=== PATIENT | male | born 1960 | race African-American/Black ===

== ENCOUNTER → 2016-05-04 | Outpatient (CLI) | payer OTHER ==
[~2016-05-04] MED LIST: ADULT LOW DOSE81 MG PO; ADULT TUSS100 MG/5 M PO; ALLERGY RELIEF10 M3 PO; ARANESP 6060 MCG/0.3; ASPIRIN81 M2 PO; ATROVENT HFA14 GM INH; AVELOX 400 MG400 MG PO; AYR50 ML NASAL; CEPHALEXIN 500500 M1 PO; COMPAZINE5 MG PO; COUMADIN 5 MG TA5 M1 PO; DUONEB 2.5-0.5 M3 ML INH; ELIQUIS2.5 MG PO; FLONASE 0.05%50 MCG INH; FLONASE IH; FLOVENT HFA 1110 MCG INH; HYDROCODONE-ACE15 ML PO; JANUVIA 50 MG T50 MG PO; LASIX; LEVAQUIN 500 M500 M2 PO; LORTAB 10 MG-3473 ML PO; METOPROLOL SUCC50 MG PO; MILK OF MA2400 MG/10 PO; MUCINEX DM ER1 EAC1 OR; MUCINEX DM TABL1 TA1 PO; MULTAQ 400 MG400 MG PO; MULTAQ400 MG PO; MULTIVITAMINS PO; NEPHROCAPS SOFT1 CAP PO; NEXIUM 40 MG CA40 M1 PO; NEXIUM OR; NEXIUM40 MG PO; NORCO 5-325 TA1 EACH PO; OCEAN45 ML NS; OMEPRAZOLE20 MG OR; PHENERGAN 25 MG25 M1 PO; PRILOSEC 20 MG20 MG PO; PROTONIX 440 MG/VIA2 IV PUSH; RENAL SOFTGEL1 MG OR; RENAL SOFTGEL1 MG PO; RENO CAPS SOFTGE1 MG PO; RENVELA800 MG OR; RENVELA800 MG PO; ROBITUSSIN DM118 ML PO; ROBITUSSIN100 MG/53 PO; SENSIPAR 30 MG30 M1 PO; SENSIPAR60 MG PO; SENSIPAR90 MG PO; SIMVASTATIN10 MG OR; SYMBICORT160 MCG/4. IH; TRIPHROCAPS SOFT1 MG PO; ZETONNA6.1 GM NASAL; ZOFRAN 4 MG ORAL4 M1 DIS; ZOFRAN ODT4 MG SUBLING; ZPAK PO
--- NOTE | ~2016-05-04 | SLE ---
[facility] [place] [address] POLYSOMNOGRAPHY STUDY Name: TALON LIZAMA [id number] Admission: 05/04/16 Attend Phys: Jeremy Estevez MD Discharge: Date of : 58 Report #: [id number] THIS REPORT FOR: //name// CC: Jeremy Mota MD HISTORY: Prior study in 04/2010 showed an apnea-hypopnea index of 18 events per sleep hour, low sat of 84%. CPAP at 7 was recommended. COMMENTS: Study done on 1 liter. BASELINE PORTION: Total sleep time 195.5 minutes, REM sleep 53. Hypopnea 122. Apnea-hypopnea index of 37.4 events per sleep hour, low sat of 77%. Respiratory effort related arousal 0.3 events per sleep hour. Titrated at 5, 6, 7, 8 and 9 cm water pressure with 1 liter oxygen. At 9 cm water pressure, the patient was seen for 153 minutes of which 28 minutes was in REM sleep. There were 16 hypopneas, apnea-hypopnea index was 6.3 events per sleep hour, low sat of 75%. The patient related his sleep was same on this night. IMPRESSION: 1. Obstructive sleep apnea/hypopnea, G47.33. 2. Periodic limb movement with arousal index of 3.1 events per sleep hour. 3. A definite CPAP setting was not established. SUGGESTIONS: 1. In addition to specific therapy, the patient should be cautioned regarding driving or operating dangerous machinery unless fully alert. The patient should be cautioned regarding the use of respiratory depressants. 2. The usual sleep apnea suggestions are recommended. 3. Oral appliance or appropriate surgery may be considered with appropriate followup. 4. An auto titrating CPAP between 5 and 11 cm water pressure is initially recommended with a Flex of 3 and 3 L of oxygen bleed-in. During our study, a Respironics Nuris view medium mask was used with heated humidity. 5. If he is intolerant to CPAP, would bring him back and do a BiPAP titration night. Starting at an IPAP of 10, EPAP of 5. 6. If signs and symptoms do not improve with therapy, further evaluation is recommended. Please do not hesitate to contact me if I may be of further assistance. <ELECTRONICALLY SIGNED> By: Jeremy Estevez MD 05/22/16 [phone] Jeremy Estevez MD /nt
== END ==
LOC: SLEEPLAB 09:01
DX: G47.33 Obstructive sleep apnea (adult) (pediatric) (principal)

== ENCOUNTER 2016-08-09 18:21 | Inpatient (IN) | payer OTHER ==
[~2016-08-09] VITALS: Ht 167.6 cm; Wt 76.7 kg
--- NOTE | ~2016-08-09 | H ---
[facility] [place] [address] [place] [address] HISTORY AND PHYSICAL Name: TALON LIZAMA Room #: 307-P ADM IN M.R.#: [id number] Admission: 08/09/16 Attend Phys: Jose Cruz Mcdermott MD Discharge: Date of : 58 Report #: [id number] THIS REPORT FOR: //name// CC: Efrain Mota MD DATE OF SERVICE: 08/09/2016 CHIEF COMPLAINT: Abdominal pain and chest pain. HISTORY OF PRESENT ILLNESS: The patient is a 56-year-old mildly mentally retarded -Trinid[place] male who presents with history of abdominal discomfort in recent weeks, although he was unable to specify exactly how long. In the last couple of days, he has also developed chest pain, which he points to an area on the back of his left thorax as the location where most of the pain is emanating from. The chest pain he describes as very uncomfortable and associated with some shortness of breath and it is quite sensitive to the touch in the area. The abdominal discomfort he states is in the area of his pannus bilaterally in the lower abdomen. He specifically told me that he has problems getting the air dry after he bathes and feels like that might be part of the problem. PAST MEDICAL HISTORY: Very extensive. Most recently, however, after a hospitalization in March, he had a sleep study that suggested that he has significant obstructive sleep apnea. Auto-titrating CPAP was ordered and feeling that consideration to be made for BiPAP if it was not tolerated. A full report is available in the hospital computer. The patient has end-stage renal disease and is hemodialyzed on Monday, Monday and Monday and is followed by Dr. Kali Braswell for this. There is a history of hypertension, history of type 2 diabetes mellitus, history of pulmonary fibrosis, chronic cough and severe problems with reflux culminating in 2 attempts surgically to correct it; the first one failed, the second seems to be holding better. The patient also has a history of dialysis, AV fistulas malfunction, intermittent atrial flutter for which he was anticoagulated with Eliquis and that was subsequently discontinued because of the patient's high risk for falls. He has significant pulmonary hypertension, though he is much peanut sheller in the last 2 years. He has also significant history of obesity and is still overweight. He has had no strokes and no heart attacks. He has had hyperlipidemia as well. MEDICATIONS: After his last hospitalization include esomeprazole, Nephrocaps, Renvela, Sensipar, Atrovent, HFA inhaler, Robitussin-DM, metoprolol, B complex, vitamins, midodrine 5 mg 3 times daily. He was taken off Multaq. ALLERGIES: He has no drug allergies. [facility] [address] [place] [address] HISTORY AND PHYSICAL Name: TALON LIZAMA Room #: 307-P [facility] IN M.R.#: [id number] Admission: 08/09/16 Attend Phys: Jose Cruz Mcdermott MD Discharge: Date of : 58 Report #: [id number] FAMILY HISTORY: Father of hepatocellular carcinoma. His mother is still living and has breast cancer and hypertension and generally has seasonal allergic rhinitis and some peripheral neuropathy. He has a sister who sudden several years ago. He has another sister who is alive and well, living in [place]. His maternal aunt of colon cancer. His maternal grandmother with dementia in her 80s. SOCIAL HISTORY: The patient has never been . He is mildly mentally retarded. He lives with his mother. He has no vices. He is dependent on supplemental oxygen at 3 L per nasal cannula continuously. He is followed by Dr. Estevez and Dr. Mota for his pulmonary needs. PHYSICAL EXAMINATION: VITAL SIGNS: Today at my office showed pulse of 80, oxygen saturation of 82% (questionable reliability), respiratory rate of 20, and blood pressure could not initially be obtained, later at the hospital he had a systolic blood pressure that was in the 80s. GENERAL: The patient is a middle-aged -Trinid[place] male who looks quite uncomfortable while seated and wearing his oxygen. HEENT: He has a slight amblyopia. His oropharynx is slightly dry. NECK: Without adenopathy or thyromegaly or mass or bruit. CHEST: Lungs are coarse bilaterally. Note is made that the patient has dramatic skin sensitivity over the left upper scapular area; however, no evidence of any rash could be found in that area. CARDIOVASCULAR: Regular, distant. ABDOMEN: Soft, but the patient is clearly tender in the right lower quadrant and to a lesser extent in the left lower quadrant. No rebound, no guard. The patient has a significant pannus and there is some intertrigo noted of mild severity. EXTREMITIES: Have bilateral lower extremity 2+ pitting edema. NEUROLOGIC: The patient's mental status is alert and oriented to place and person and time. No hallucinations, no delusions. Affect is definitely downcast. He is not suicidal. General motor strength is diminished, but without focal deficit. He is able to walk with assistance. The cranial nerves 2-12 were otherwise fairly normal. The patient has a slight sensory deficit in both lower extremities in a stocking distribution. Reflexes were not tested. Babinski's and Romberg's signs were not tested either. ASSESSMENT AND PLAN: 1. Abdominal pain, etiology is not clear at this time and I believe for the moment repeat observation will be necessary to help guide the diagnostic workup and further therapies. If the patient is developing a surgical problem, he is an extremely high risk for surgery. See code status discussion below. 2. Chest pain, this new onset of left sided posterior chest wall pain does not appear to me to be cardiac. Nonetheless, the patient is at high risk given his underlying history of diabetes and obesity and renal disease. We will also [facility] [address] [place] [address] HISTORY AND PHYSICAL Name: TALON LIZAMA RIP Room #: 307-P [facility] IN .R.#: [id number] Admission: 08/09/16 Attend Phys: Jose Cruz Mcdermott MD Discharge: Date of : 58 Report #: [id number] continue to observe and reexamine. For now, we will rule out myocardial infarction and get repeated checks to see if the patient is developing a rash that might be consistent with shingles. He has no evidence of such a rash at this time. 3. Severe pulmonary hypertension and obstructive sleep apnea with significant evidence clinically for cor pulmonale. Resume CPAP, monitor for response to therapy. We will get a chest x-ray. Other considerations include pneumonia, pleural effusions, left sided congestive heart failure in addition to the right-sided failure he has clinically. 4. Gastroesophageal reflux disease. 5. Pulmonary fibrosis. 6. Mental retardation. 7. Hyperlipidemia. I did have a lengthy interview with the patient and his mother after arrival at the hospital today. I explained both to the patient in terms he could understand as well as to his mother the meaning of the words code blue and in the event of cardiac and/or pulmonary failure what kind of interventions would normally be pursued in order to resuscitate a person who had . Both the patient and his mother agreed. He would not want to undergo code blue in any circumstance and satisfy that they understood this importance of the significance of the setting. I did enter into the computer records a do not resuscitate order for this patient. <ELECTRONICALLY SIGNED> By: Jose Cruz Mcdermott MD 08/10/16 1043 [id number] Jose Cruz Mcdermott MD /nt
--- NOTE | ~2016-08-09 | EKG ---
[address] [place] [address] ELECTROCARDIOGRAM REPORT Name: TALON LIZAMA Room #: 307- ADM IN M.R.#: [id number] Admission: 08/09/16 Attend Phys: Jose Cruz Mcdermott MD Discharge: Date of : 58 Report #: [id number] THIS REPORT FOR: //name// [facility] Test Date: 2016-08-09 Test Time: 19:06:42 Pat Name: TALON LIZAMA Department: Room: 307 Gender: M Application Support Analyst: miko : 1960 Requested By: Jose Cruz Mcdermott Order Number: [id number] MD: Tre Santos Measurements Intervals [place] Rate: 80 P: 42 NE: 167 QRS: 144 QRSD: 98 T: -15 QT: 377 QTc: 435 Interpretive Statements Sinus rhythm Right atrial enlargement RVH with secondary repolarization abnrm Compared to ECG 03/16/2016 07:31:32 Significant change was found Electronically Signed On 08-10-2016 8:00:55 CDT by Tre Santos [email or web address] <ELECTRONICALLY SIGNED> By: Tre Santos MD, [facility] 08/10/16 0800 05 Tre Santos MD, [facility] /EPI
--- NOTE | ~2016-08-09 | HC ---
[facility] [place] [address] [place] [address] CONSULTATION Name: TALON LIZAMA Room #: 307-P [facility] IN M.R.#: [id number] Admission: 08/09/16 Attend Phys: Jose Cruz Mcdermott MD Discharge: Date of : 58 Report #: [id number] THIS REPORT FOR: //name// CC: Jose Cruz Mcdermott DATE OF SERVICE: 08/10/2016 ATTENDING PHYSICIAN: Jose Cruz Mcdermott M.D. REASON FOR CONSULTATION: End-stage renal disease requiring dialysis. HISTORY OF PRESENT ILLNESS: A 56-year-old patient well known to our service, chronic hemodialysis patient with diabetic nephropathy, has chronic pulmonary disease with pulmonary fibrosis and chronically requiring home oxygen. It is unclear as to exactly why he came to the hospital possibly for left back and flank pain, possibly for abdominal pain, possibly for some nausea and vomiting. In any event, he was admitted. He is stable on his chronic oxygen therapy. He is having some pain in his left posterior thoracic area and he is in need of dialysis. PAST MEDICAL HISTORY: Longstanding end-stage renal disease on dialysis, apparently on BiPAP for obstructive sleep apnea, longstanding diabetes mellitus, pulmonary fibrosis, he has had reflux with two different surgeries I believe to correct his esophageal reflux in the past. HOME MEDICATIONS: Include Eliquis 2.5 mg b.i.d., cinacalcet 90 mg daily, Nexium 40 mg daily, Sevelamer at 2400 mg with meals, metoprolol 50 mg daily as well as his chronic home oxygen and possibly some inhalers. FAMILY HISTORY: Noncontributory. SOCIAL HISTORY: Lives along with his mother who takes care of him, no cigarettes or alcohol, chronic oxygen as mentioned. REVIEW OF SYSTEMS: GENERAL: He says has been feeling poorly. EYES: His vision is okay. ENT: Hearing okay and swallows okay. ENDOCRINE: Positive for diabetes. RESPIRATORY: Chronic shortness of breath with cough, nonproductive, no hemoptysis. CARDIAC: Some nondescript chest pain at times. He has had some supraventricular arrhythmias in the past. GASTROINTESTINAL: Possibly some nausea, possibly some vomiting. GENITOURINARY: Makes very little urine. No dysuria. [facility] [address] [place] [address] CONSULTATION Name: TALON LIZAMA Room #: 307-P [facility] IN .R.#: [id number] Admission: 08/09/16 Attend Phys: Jose Cruz Mcdermott MD Discharge: Date of : 58 Report #: [id number] NEUROLOGIC: No seizure, syncope or stroke. PHYSICAL EXAMINATION: GENERAL: This is a chronically ill-appearing gentleman, does not appear to be in acute distress, sitting up with nasal cannula oxygen. SKIN: Unremarkable. SKELETAL: Unremarkable. HEENT: Extraocular movements are full. Vision and hearing intact. Mucous membranes are on the dry side. NECK: Supple. CHEST: Shows some coarse breath sounds with occasional rhonchi, diminished breath sounds. HEART: Regular. ABDOMEN: Soft and completely nontender. EXTREMITIES: Show very trace peripheral edema. NEUROLOGIC: Grossly intact. LABORATORY DATA: Hemoglobin is 15.4. Sodium is 138, potassium 4.8, chloride 98, bicarbonate 25, BUN 53, creatinine 8.5, calcium 7.2. ASSESSMENT AND PLAN: 1. End-stage renal disease, will need dialysis today. 2. Chronic pulmonary fibrosis. 3. Left posterior thoracic pain. 4. Obstructive sleep apnea. <ELECTRONICALLY SIGNED> By: Nathaniel Espinal MD 08/11/16 1115 0848 54 Nathaniel Espinal MD /nt
--- NOTE | ~2016-08-09 | HC ---
[facility] [place] [address] [place] [address] CONSULTATION Name: TALON LIZAMA Room #: 307-P ADM IN M.R.#: [id number] Admission: 08/09/16 Attend Phys: Jose Cruz Mcdermott MD Discharge: Date of : 58 Report #: [id number] THIS REPORT FOR: //name// CC: Jose Cruz Mcdermott DATE OF SERVICE: 08/10/2016 REASON FOR CONSULTATION: Possible pleural effusion. IMPRESSION: 1. Possible pleural effusion, noted decubitus films, we will follow, monitor for volume overload. 2. Pulmonary hypertension-agree with dr. nolan in march 3. Obstructive sleep apnea. 4. Back pain. PLAN: 1. BiPAP to see if he will tolerate this better than the CPAP. 2. Volume status per Renal. 3. agree looking for shingles. HISTORY OF PRESENT ILLNESS: A 56-year-old male admitted with abdominal pain and chest pain. Complains of some shortness of breath. Had dialysis. No hemoptysis or hematemesis. not using his cpap MEDICATIONS: Include esomeprazole, Nephrocaps, Renvela, Sensipar, Atrovent, Robitussin, metoprolol, B complex, midodrine. ALLERGIES: No known. FAMILY HISTORY: Breast CA, hypertension, hepatocellular carcinoma. SOCIAL HISTORY: Negative tobacco, negative ETOH. REVIEW OF SYSTEMS: Positive chest pain. Mild shortness of breath, back pain, sleep apnea, and dyspnea on exertion. No fever, chills, or night sweats. PAST SURGICAL HISTORY: Include fistula, Perri, hernia repair as well as redo. PHYSICAL EXAMINATION: VITAL SIGNS: Temperature 98.8, pulse 89, respirations 20, BP 137/86. EYES: Negative icterus. NECK: Negative JVD. LUNGS: Showed a few crackles at bases. HEART: Regular. ABDOMEN: Bowel sounds present, soft. EXTREMITIES: Showed positive edema mom relates better. His back did not show a definite shingles type rash. [facility] [address] [place] [address] CONSULTATION Name: TALON LIZAMA FRANKLIN Room #: [facility] ADM IN [facility]#: [id number] Admission: 08/09/16 Attend Phys: Jose Cruz Mcdermott MD Discharge: Date of : 58 Report #: [id number] LABORATORY DATA: Chest x-ray showed cardiomegaly, bilateral infiltrates. Troponin 0.04, albumin 3.6. We will follow closely with you. <ELECTRONICALLY SIGNED> By: Jeremy Estevez MD 08/11/16 [id number] [id number] Jeremy Estevez MD /nt
[2016-08-09 20:00] VITALS: BP 82/56
[2016-08-09 20:07] LABS: HEMATOCRIT 47.6 % (42.0-52.0); HEMOGLOBIN 15.4 gm/dL (14.0-18.0); MCH 32.5 pg (26.0-34.0); MCHC 32.4 g/dL (28.0-37.0); MCV 100.2 fL (80.0-100.0); PLATELET COUNT 153 thou/uL (150-400); RBC 4.75 mil/uL (4.50-6.00); RDW 16.8 % (10.5-14.5)
[2016-08-09 20:08] LABS: MANUAL DIFF YES
[2016-08-09 20:38] LABS: ABSOLUTE NEUTROPHILS 6.9 thou/uL (1.4-8.2); TOTAL CELL COUNT 100
[2016-08-09 20:39] LABS: ANISOCYTOSIS 1+
[2016-08-09 21:03] LABS: ALBUMIN 3.6 g/dL (3.4-5.0); CALCIUM 7.2 mg/dL (8.5-10.1); CREATININE 8.5 mg/dL (0.7-1.3); DIRECT BILIRUBIN 0.3 mg/dL (<0.1-0.3); POTASSIUM 4.8 mmol/L (3.5-5.1); TOTAL BILIRUBIN 0.9 mg/dL (<0.1-1.0); TOTAL PROTEIN 6.7 g/dL (6.4-8.2); TROPONIN-I 0.05 ng/mL (<0.04-0.07)
[2016-08-10 00:20] VITALS: BP 68/41
[2016-08-10 00:47] VITALS: BP 82/47
[2016-08-10 04:00] VITALS: BP 93/55
[2016-08-10 07:32] VITALS: BP 93/41
[2016-08-10 15:29] VITALS: BP 137/86
[2016-08-10 20:04] VITALS: BP 124/81
[2016-08-11 03:40] VITALS: BP 90/56
[2016-08-11 08:20] VITALS: BP 114/78
[2016-08-11 16:08] VITALS: BP 125/75
[2016-08-11 19:55] VITALS: BP 116/96
[2016-08-12 04:25] VITALS: BP 82/54
[2016-08-12 16:47] VITALS: BP 85/61
[2016-08-12 18:06] VITALS: BP 106/79
[2016-08-12 19:38] VITALS: BP 85/41
[2016-08-13 04:14] VITALS: BP 82/43
[2016-08-13 08:06] VITALS: BP 80/41
[2016-08-13] MEDS ORDERED: MIDODRINE HCL 55 M1 PO (10:38)
[2016-08-13] MEDS ORDERED: ASPIR 8181 MG PO (10:39)
[2016-08-13] MEDS ORDERED: ATIVAN0.5 MG PO (10:40)
[2016-08-13] MEDS ORDERED: ROBITUSSIN DM118 ML PO (10:41)
[2016-08-13] MEDS ORDERED: DUONEB 2.5-0.5 M3 ML INH (10:44)
[2016-08-13] MEDS ORDERED: NEXIUM40 MG PO (10:47)
[2016-08-13 12:03] VITALS: BP 80/41
== END 2016-08-13 14:02 | disposition home health service (06) | DRG 391 ==
LOC: 3N 18:21
PROVIDERS: Internal Medicine
PROC: 5A1D60Z (ICD-10-PCS; principal; 2016-08-12)
DX: A08.4 Viral intestinal infection, unspecified (principal); N18.6 End stage renal disease; I13.11 Hypertensive heart and chronic kidney disease without heart failure, with stage 5 chronic kidney disease, or end stage renal disease; R07.9 Chest pain, unspecified; G47.33 Obstructive sleep apnea (adult) (pediatric); I27.2 Other secondary pulmonary hypertension; E11.22 Type 2 diabetes mellitus with diabetic chronic kidney disease; K21.9 Gastro-esophageal reflux disease without esophagitis; J84.10 Pulmonary fibrosis, unspecified; E78.5 Hyperlipidemia, unspecified; I27.81 Cor pulmonale (chronic); J44.9 Chronic obstructive pulmonary disease, unspecified; Z99.81 Dependence on supplemental oxygen; Z99.2 Dependence on renal dialysis
CPT/HCPCS: 10096; 32100

== ENCOUNTER 2016-09-27 14:44 | Inpatient (IN) | payer OTHER ==
[~2016-09-27] VITALS: Ht 167.6 cm; Wt 73.8 kg
--- NOTE | ~2016-09-27 | HC ---
[facility] [place] [address] [place] [address] CONSULTATION Name: TALON LIZAMA Room #: 438-P [facility] IN M.R.#: [id number] Admission: 09/27/16 Attend Phys: Jose Cruz Mcdermott MD Discharge: 09/29/16 Date of : 58 Report #: [id number] THIS REPORT FOR: //name// CC: [facility] Jose Cruz Mcdermott DATE OF SERVICE: 09/28/2016 RENAL CONSULTATION REASON FOR CONSULTATION: End-stage renal disease. HISTORY OF PRESENT ILLNESS: This 56-year-old male is well known to us from his course on maintenance hemodialysis. He dialyzes 3 times weekly at [facility]. The patient noted discharge from his umbilicus and sought medical attention. He was hospitalized for further evaluation and treatment. Of note is that the patient has undergone previous surgery for hiatal hernia x 2. He denies fevers, chills, sweats, or other constitutional complaints. PAST MEDICAL HISTORY: Otherwise remarkable for longstanding hypertension, paroxysmal atrial tachycardia, chronic hypotension, previous inguinal hernia, and pneumonia. ALLERGIES: He has no known drug allergies. MEDICATIONS: On admission to the hospital include midodrine, aspirin, Ativan, Robitussin, DuoNeb, Nexium, guaifenesin, Atrovent, metoprolol, Nephrocaps, Renvela, and Sensipar. FAMILY HISTORY: Negative for renal disease. PERSONAL AND SOCIAL HISTORY: The patient lives with his mother. He does not smoke, use alcohol, or have any history of substance abuse. REVIEW OF SYSTEMS: Remarkable for umbilical drainage as described. He denies fevers, chills, sweats, or other constitutional complaints. He denies shortness of breath, productive cough, hemoptysis, chest pain, palpitations, nausea, vomiting, or diarrhea. PHYSICAL EXAMINATION: GENERAL: Reveals a well-developed, well-nourished male, appearing his stated age, in no acute distress. VITAL SIGNS: Blood pressure 83/54, temperature 97.4, pulse 71, and respirations 18. SKIN: Warm and dry without rash or erythema. There is no gross clubbing, [facility] [address] [place] [address] CONSULTATION Name: TALON LIZAMA FLATONIA Room #: 438-P [facility] IN .R.#: [id number] Admission: 09/27/16 Attend Phys: Jose Cruz Mcdermott MD Discharge: 09/29/16 Date of : 58 Report #: [id number] cyanosis, edema, or adenopathy. HEENT: The head is normocephalic and atraumatic. The sclerae are white. There is full range of extraocular motion. Dentition is in poor repair. NECK: Supple. LUNGS: Lung tinajero are grossly clear to percussion and auscultation with good inspiratory effort. CARDIOVASCULAR: Examination reveals a regular rate and rhythm without rub. ABDOMEN: Soft and nontender. There is an area of crusting about his umbilicus, but no active drainage or purulent material at this time. NEUROLOGIC: Examination reveals the patient to be alert and cooperative with a nonfocal exam. LABORATORY STUDIES: Available at this time include sodium 139, potassium 3.9, chloride 100, CO2 25, BUN 47, creatinine 8.6, glucose 97, and albumin 3.2. White blood cell count 6400, hemoglobin 15.2, hematocrit 46.3, and platelet count 130,000. ASSESSMENT: 1. End-stage renal disease, for dialysis today as per his usual Monday, Monday, and Monday schedule. 2. Umbilical drainage, rule out abscess, he is to be seen by Dr. Cabral. 3. Anemia of chronic kidney disease. PLAN: We will provide dialysis support for the patient. Please see orders. <ELECTRONICALLY SIGNED> By: Yemi Mendoza MD 10/02/16 1020 1254 1646 Yemi Mendoza MD /nt
--- NOTE | ~2016-09-27 | HC ---
[facility] [place] [address] [place] [address] CONSULTATION Name: TALON LIZAMA Room #: 438-P ADM IN M.R.#: [id number] Admission: 09/27/16 Attend Phys: Jose Cruz Mcdermott MD Discharge: Date of : 58 Report #: [id number] THIS REPORT FOR: //name// CC: Jose Cruz Mcdermott MD HISTORY OF PRESENT ILLNESS: The patient is a 56-year-old who has been complaining of discomfort in the umbilicus, irritation in the umbilicus and has had drainage. This has started about 2 weeks ago, he says. He says that the drainage is thick purulent material. He has never had this before. He has not had any surgery recently. He said he has had surgery for obesity. He told me that this was done laparoscopically. He has a lower midline incision. He does not know what that is from. The patient says he does not have any mesh in the abdominal wall. He does does have a history per Dr. Mcdermott' H and P that he had a Perri fundoplication and had have it done repeated. Has a history of mental handicap. Had a history of a right inguinal hernia possibly incarcerated. His white count is normal . I spoke with Dr. Mcdermott yesterday and they recommended that they start him antibiotic. He has been started on Rocephin. He is also getting his wound cleaned and his umbilicus cleaned down with peroxide. Culture apparently has been obtained and result is pending. PHYSICAL EXAMINATION: The patient is in dialysis currently. The umbilicus has irritated skin. In the deep part of the umbilicus, there is some minimal amount of drainage. It is more of a brown grayish looking. It is not copious. He has some tenderness here, but not tenderness around the umbilicus. The umbilicus was probed. I do not feel any hernia or any fistula. He had a CT of this area which I reviewed and I do not think there is any evidence of abscess underneath this. There is no appearance of an abscess under this. I do not see any obvious mesh material under this. IMPRESSION AND PLAN: The patient is a 56-year-old with infection in the umbilicus. Possibly couple of weeks ago. No prior history. He is on dialysis with fistula in the right arm. I suspect this is a localized infection. The skin appearance could be some kind of a dermatitis also. I do not think he has a fistula or an abscess in this area. I do not think he has urachus. Continue local wound care. If it does not get better, consider topical steroid in this area. By: [id number] Armani Cabral MD /nt
[~2016-09-27 14:44] MED LIST changes: +ASPIR 8181 MG PO; +ATIVAN0.5 MG PO; +MIDODRINE HCL 55 M1 PO
[2016-09-27 16:48] VITALS: BP 107/80
[2016-09-27 19:21] VITALS: BP 83/48; BP 87/42
[2016-09-27 21:04] LABS: HEMATOCRIT 46.3 % (42.0-52.0); HEMOGLOBIN 15.2 gm/dL (14.0-18.0); MCH 32.4 pg (26.0-34.0); MCHC 32.7 g/dL (28.0-37.0); MCV 98.9 fL (80.0-100.0); PLATELET COUNT 130 thou/uL (150-400); RBC 4.68 mil/uL (4.50-6.00); RDW 16.5 % (10.5-14.5); WBC 6.4 thou/uL (4.0-11.0)
[2016-09-27 21:13] LABS: MANUAL DIFF YES
[2016-09-27 21:19] LABS: CALCIUM 7.3 mg/dL (8.5-10.1); CREATININE 8.6 mg/dL (0.7-1.3); POTASSIUM 3.9 mmol/L (3.5-5.1)
[2016-09-27 21:24] LABS: ALBUMIN 3.2 g/dL (3.4-5.0); DIRECT BILIRUBIN 0.3 mg/dL (<0.1-0.3); TOTAL BILIRUBIN 0.9 mg/dL (<0.1-1.0); TOTAL PROTEIN 6.5 g/dL (6.4-8.2)
[2016-09-27 21:44] LABS: ABSOLUTE NEUTROPHILS 4.7 thou/uL (1.4-8.2); TOTAL CELL COUNT 100
[2016-09-27 21:45] LABS: ANISOCYTOSIS 1+; MICROCYTES SLIGHT
[2016-09-27 23:41] VITALS: BP 73/48
[2016-09-28 03:46] VITALS: BP 93/52
[2016-09-28 08:39] VITALS: BP 83/54
[2016-09-28 19:50] VITALS: BP 84/41
[2016-09-29 05:22] VITALS: BP 77/48
[2016-09-29 06:06] LABS: HEMATOCRIT 45.2 % (42.0-52.0); HEMOGLOBIN 15.1 gm/dL (14.0-18.0); MCH 32.7 pg (26.0-34.0); MCHC 33.4 g/dL (28.0-37.0); RBC 4.61 mil/uL (4.50-6.00); RDW 16.5 % (10.5-14.5); WBC 6.4 thou/uL (4.0-11.0)
[2016-09-29 06:17] LABS: CALCIUM 7.5 mg/dL (8.5-10.1); PHOSPHORUS 6.1 mg/dL (2.5-4.9); POTASSIUM 4.7 mmol/L (3.5-5.1)
[2016-09-29 08:00] VITALS: BP 79/41
[2016-09-29] MEDS ORDERED: GLUCAGON HCL1 MG IM (10:53)
[2016-09-29] MEDS ORDERED: HYDROCODON-ACE1 EAC7 PO (10:53)
[2016-09-29] MEDS ORDERED: NEXIUM40 MG PO (10:53)
[2016-09-29] MEDS ORDERED: RENVELA800 MG PO (10:53)
[2016-09-29] MEDS ORDERED: NEPHROCAPS SOFT1 CAP PO (10:53)
[2016-09-29] MEDS ORDERED: SENSIPAR 30 MG30 M1 PO (10:53)
[2016-09-29] MEDS ORDERED: MIDODRINE HCL 55 M1 PO (10:53)
[2016-09-29] MEDS ORDERED: DEXTROSE 5025 GM/SYR IV PUSH (10:53)
[2016-09-29] MEDS ORDERED: DUONEB 2.5-0.5 M3 ML INH (10:53)
[2016-09-29] MEDS ORDERED: ASPIR 8181 MG PO (10:53)
[2016-09-29] MEDS ORDERED: METOPROLOL SUCC50 MG PO (10:53)
[2016-09-29] MEDS ORDERED: ADULT TUSS100 MG/5 M PO (10:53)
[2016-09-29] MEDS ORDERED: CEPHALEXIN 500500 M3 PO (10:56)
[2016-09-29 13:02] VITALS: BP 81/41
== END 2016-09-29 13:45 | disposition home or self-care (01) | DRG 602 ==
LOC: 4S 14:44
PROVIDERS: Internal Medicine; Internal Medicine Nephrology
PROC: 5A1D00Z (ICD-10-PCS; principal; 2016-09-28)
DX: L02.216 Cutaneous abscess of umbilicus (principal); N18.6 End stage renal disease; I48.92 Unspecified atrial flutter; I12.0 Hypertensive chronic kidney disease with stage 5 chronic kidney disease or end stage renal disease; L03.316 Cellulitis of umbilicus; I95.89 Other hypotension; E11.22 Type 2 diabetes mellitus with diabetic chronic kidney disease; D63.8 Anemia in other chronic diseases classified elsewhere; J44.9 Chronic obstructive pulmonary disease, unspecified; K21.9 Gastro-esophageal reflux disease without esophagitis; I95.1 Orthostatic hypotension; G47.33 Obstructive sleep apnea (adult) (pediatric); I27.2 Other secondary pulmonary hypertension; E78.5 Hyperlipidemia, unspecified; I48.91 Unspecified atrial fibrillation; F70 Mild intellectual disabilities; Z79.82 Long term (current) use of aspirin; Z79.899 Other long term (current) drug therapy; Z80.9 Family history of malignant neoplasm, unspecified; Z83.3 Family history of diabetes mellitus; Z82.49 Family history of ischemic heart disease and other diseases of the circulatory system; Z80.3 Family history of malignant neoplasm of breast; Z99.81 Dependence on supplemental oxygen; Z99.2 Dependence on renal dialysis
CPT/HCPCS: 10102; 32100

== ENCOUNTER 2016-10-15 17:24 | Inpatient (IN) | payer OTHER ==
[~2016-10-15] VITALS: Ht 167.6 cm; Wt 74.1 kg
--- NOTE | ~2016-10-15 | EKG ---
[place] [address] [facility] [place] [address] ELECTROCARDIOGRAM REPORT Name: TALON LIZAMA Room #: 244-P ADM IN M.R.#: [id number] Admission: 10/15/16 Attend Phys: Jose Cruz Mcdermott MD Discharge: Date of : 58 Report #: [id number] THIS REPORT FOR: //name// [facility] ED Test Date: 2016-10-15 Test Time: 17:42:14 Pat Name: TALON LIZAMA Department: Room: 244 Gender: M [employer]: : 1960 Requested By: Laura Hernandez Order Number: [id number] MD: Tre Santos Measurements Intervals [place] Rate: 96 P: 45 [place]: 180 QRS: 144 QRSD: 90 T: -5 QT: 365 QTc: 462 Interpretive Statements Sinus rhythm Biatrial enlargement Right ventricular hypertrophy Borderline T abnormalities, inferior leads Compared to ECG 08/09/2016 19:06:42 No significant change was found Electronically Signed On 10-17-2016 9:13:33 CDT by Tre Santos [email or web address] <ELECTRONICALLY SIGNED> By: Tre Santos MD, [facility] 07/01/24 [phone] Tre Santos MD, [facility] /EPI
--- NOTE | ~2016-10-15 | 2DMMODE ---
[facility] [address] [place] [address] 2 D/M-MODE ECHOCARDIOGRAM Name: TALON LIZAMA Room #: 244-P [facility] [place] .R.#: [id number] Admission: 10/15/16 Attend Phys: Jose Cruz Mcdermott MD Discharge: Date of : 58 Date of Service: 10/17/16 0937 Report #: [id number] THIS REPORT FOR: //name// APPROVED REPORT Study performed: 10/17/2016 07:02:08 EXAM: Comprehensive 2D, Doppler, and color-flow Echocardiogram Patient Location: Bedside Room #: 244 Other Information Study Quality: Good Indications Hypotension COPD Diabetes Dyspnea Elevated Troponin 2D Dimensions RVDd: 52.32 mm LVEF(%): 67.81 (>50%) IVSd: 17.91 (7-11mm) LVOT Diam: 17.64 (18-24mm) LVDd: 34.53 mm PWd: 15.63 (7-11mm) Ascending Ao: 32.66 (22-36mm) LVDs: 21.81 (25-40mm) Aortic Root: 31.27 mm IVC: 24.00 mm Ibrahim's LVEF: 67.81 % Volumes Left Atrial Volume (Systole) Single Plane 4CH: 6.75 mL Single Plane 2CH: 9.54 mL LA ESV Index: 5.00 mL/m2 Aortic Valve AoV Peak Moustapha.: 0.87 m/s AO Peak Gr.: 3.05 mmHg LVOT Max P.39 mmHg LVOT Max V: 0.77 m/s ERICH Vmax: 2.16 cm2 Mitral Valve E/A Ratio: 0.7 MV Decel. Time: 238.[address] [facility] [place] [address] 2 D/M-MODE ECHOCARDIOGRAM Name: TALON LIZAMA [place] Room #: 244-P [facility] [place] [facility].#: [id number] Admission: 10/15/16 Attend Phys: Jose Cruz Mcdermott MD Discharge: Date of : 58 Date of Service: 10/17/16 0937 Report #: [id number] MV E Max Moustapha.: 0.43 m/s MV A Moustapha.: 0.58 m/s MV PHT: 69.25 ms IVRT: 159.17 ms Pulmonary Valve PV Peak Moustapha.: 0.66 m/s PV Peak Gr.: 1.72 mmHg Pulmonary Vein P Vein S: 0.23 m/s P Vein A: 0.14 m/s P Vein D: 0.21 m/s P Vein A Dur.: 96.9 msec P Vein S/D Ratio: 1.10 Tricuspid Valve TR Peak Moustapha.: 3.68 m/s RAP Estimate: 15.00 mmHg TR Peak Gr.: 54.08 mmHg Left Ventricle Left ventricular cavity is small. Flattened septum consistent with right ventricular pressure overload. Moderate to severe left ventricular hypertrophy. The overall left ventricular systolic function appears normal. LVEF is 65%. Mild diastolic dysfunction is present (impaired relaxation pattern). Right Ventricle Right ventricle is severely dilated. Right ventricle is severely hypokinetic. Atria Left atrium is small. The interatrial septum appears intact with no evidence for an atrial septal defect. Right atrium is severely dilated. Aortic Valve The aortic valve is mildly sclerotic Mild aortic regurgitation. There is no aortic valvular stenosis. Mitral Valve The mitral valve is normal in structure. There is no mitral valve regurgitation noted. No evidence of mitral valve stenosis. Tricuspid Valve The tricuspid valve is normal in structure. There is severe tricuspid regurgitation. The right atrial pressure is estimated at 15 mmHg. Severe pulmonary hypertension is present with PAP estimated at [address] [address] 2 D/M-MODE ECHOCARDIOGRAM Name: TALON LIZAMA RIP Room #: 244-P [facility] [place] [facility]#: [id number] Admission: 10/15/16 Attend Phys: Jose Cruz Mcdermott MD Discharge: Date of : 58 Date of Service: 10/17/16 0937 Report #: [id number] Pulmonic Valve The pulmonary valve is normal in structure. Trace to mild pulmonic regurgitation. Great Vessels The aortic root is normal in size. IVC is dilated and collapses <50% with inspiration. Pericardium No pericardial effusion. <Conclusion> Normal global and regional systolic function. LVEF is 65%. Moderate to severe left ventricular hypertrophy. Flattened septum consistent with right ventricular pressure overload. Mild diastolic dysfunction is present (impaired relaxation pattern). Right ventricle and right atrium are severely dilated. Right ventricle is severely hypokinetic. The aortic valve is mildly sclerotic, no stenosis, mild aortic regurgitation. The mitral valve is normal in structure, no mitral valve regurgitation There is severe tricuspid regurgitation. Pulmonary artery pressure of 65-70mm Hg No pericardial effusion. <ELECTRONICALLY SIGNED> By: Tre Santos MD, FACC 10/17/1637 Tre Santos MD, FACC /INF
[~2016-10-15 17:24] MED LIST changes: +CEPHALEXIN 500500 M3 PO; +DEXTROSE 5025 GM/SYR IV PUSH; +GLUCAGON HCL1 MG IM; +HYDROCODON-ACE1 EAC7 PO
[2016-10-15 17:25] VITALS: BP 172/120
[2016-10-15 18:36] LABS: HEMATOCRIT 51.5 % (42.0-52.0); HEMOGLOBIN 16.8 gm/dL (14.0-18.0); MANUAL DIFF YES; MCH 32.5 pg (26.0-34.0); MCHC 32.6 g/dL (28.0-37.0); MCV 99.9 fL (80.0-100.0); PLATELET COUNT 264 thou/uL (150-400); RBC 5.16 mil/uL (4.50-6.00); RDW 16.9 % (10.5-14.5); WBC 11.8 thou/uL (4.0-11.0)
[2016-10-15 18:48] LABS: CALCIUM 8.2 mg/dL (8.5-10.1); CREATININE 7.2 mg/dL (0.7-1.3); POTASSIUM 4.2 mmol/L (3.5-5.1)
[2016-10-15 18:50] LABS: APTT 31.1 Seconds (24.5-32.8); INR 1.4; PROTIME 14.5 Seconds (9.3-11.4)
[2016-10-15 18:54] LABS: MAGNESIUM 2.3 mg/dL (1.8-2.4)
[2016-10-15 18:59] LABS: ALBUMIN 3.3 g/dL (3.4-5.0); TOTAL BILIRUBIN 1.5 mg/dL (<0.1-1.0); TOTAL PROTEIN 7.5 g/dL (6.4-8.2); TROPONIN-I 0.16 ng/mL (<0.04-0.07)
[2016-10-15 19:00] LABS: ABSOLUTE NEUTROPHILS 9.9 thou/uL (1.4-8.2); PLATELET ESTIMATE NORMAL; TOTAL CELL COUNT 100
[2016-10-15 23:49] VITALS: BP 97/48
[2016-10-16] VITALS (78 sets, daily range): BP systolic 51–137; BP diastolic 20–100
[2016-10-16 07:03] LABS: CREATININE 7.6 mg/dL (0.7-1.3); POTASSIUM 4.8 mmol/L (3.5-5.1)
[2016-10-17] VITALS (50 sets, daily range): BP systolic 48–129; BP diastolic 28–90
[2016-10-18] VITALS (35 sets, daily range): BP systolic 49–177; BP diastolic 32–146
[2016-10-19 04:30] VITALS: BP 69/40
[2016-10-19 08:06] VITALS: BP 70/42
[2016-10-19 11:44] VITALS: BP 89/50
[2016-10-19 16:12] VITALS: BP 67/35
[2016-10-19] MEDS ORDERED: NITROGLYCERIN0.4 MG SUBLING (17:40)
[2016-10-19] MEDS ORDERED: GLUCAGON HCL1 MG IM (17:40)
[2016-10-19] MEDS ORDERED: MIDODRINE HCL 55 M1 PO (17:40)
[2016-10-19] MEDS ORDERED: ENOXAPARIN30 MG/0.1 SUBQ (17:40)
[2016-10-19] MEDS ORDERED: HUMALOG100 UNIT/1 SUBQ (17:40)
[2016-10-19 19:44] VITALS: BP 64/32
[2016-10-19 20:00] VITALS: BP 64/32
[2016-10-20] VITALS (7 sets, daily range): BP systolic 60–110; BP diastolic 33–69
[2016-10-21 03:18] VITALS: BP 122/103
[2016-10-21 08:00] VITALS: BP 100/33
[2016-10-21 11:24] VITALS: BP 105/35
[2016-10-21] MEDS ORDERED: DEXTROSE 5025 GM/SYR IV PUSH (13:44)
[2016-10-21] MEDS ORDERED: RENVELA800 MG PO (13:44)
[2016-10-21] MEDS ORDERED: MORPHINE 44 MG/1 ML IV PUSH (13:44)
[2016-10-21] MEDS ORDERED: NEPHROCAPS SOFT1 CAP PO (13:44)
[2016-10-21] MEDS ORDERED: NEXIUM40 MG PO (13:44)
[2016-10-21] MEDS ORDERED: ADULT TUSS100 MG/5 M PO (13:44)
[2016-10-21] MEDS ORDERED: LEVAQUIN 500 M500 M1 PO (13:44)
[2016-10-21] MEDS ORDERED: ASPIR 8181 MG PO (13:44)
[2016-10-21] MEDS ORDERED: GLUCOSE4 GM PO (13:44)
[2016-10-21] MEDS ORDERED: GLUTOSE GEL 1515 G1 PO (13:44)
[2016-10-21] MEDS ORDERED: SENSIPAR 30 MG30 M1 PO (13:44)
[2016-10-21] MEDS ORDERED: DUONEB 2.5-0.5 M3 ML INH (13:44)
== END 2016-10-21 15:44 | disposition hospice, inpatient (51) | DRG 314 ==
LOC: ER 17:24 → EROBS 19:33 → ICU 20:24 → 2N 10-18 14:57
PROVIDERS: Emergency Medicine; Internal Medicine; Nurse Practitioner Family
PROC: 5A09457 Assistance with Respiratory Ventilation, 24-96 Consecutive Hours, Continuous Positive Airway Pressure (ICD-10-PCS; principal; 2016-10-16)
PROC: 5A1D60Z (ICD-10-PCS; 2016-10-17)
DX: I27.2 Other secondary pulmonary hypertension (principal); J18.9 Pneumonia, unspecified organism; N18.6 End stage renal disease; I13.2 Hypertensive heart and chronic kidney disease with heart failure and with stage 5 chronic kidney disease, or end stage renal disease; I48.92 Unspecified atrial flutter; J96.11 Chronic respiratory failure with hypoxia; I50.30 Unspecified diastolic (congestive) heart failure; K21.9 Gastro-esophageal reflux disease without esophagitis; G47.33 Obstructive sleep apnea (adult) (pediatric); J84.10 Pulmonary fibrosis, unspecified; K59.00 Constipation, unspecified; I95.89 Other hypotension; D64.9 Anemia, unspecified; I48.91 Unspecified atrial fibrillation; E11.22 Type 2 diabetes mellitus with diabetic chronic kidney disease; J44.9 Chronic obstructive pulmonary disease, unspecified; R13.10 Dysphagia, unspecified; F79 Unspecified intellectual disabilities; F32.9 Major depressive disorder, single episode, unspecified; Z82.49 Family history of ischemic heart disease and other diseases of the circulatory system; Z83.3 Family history of diabetes mellitus; Z84.1 Family history of disorders of kidney and ureter; Z80.3 Family history of malignant neoplasm of breast; Z81.1 Family history of alcohol abuse and dependence; Z79.82 Long term (current) use of aspirin; Z79.899 Other long term (current) drug therapy; Z98.84 Bariatric surgery status; Z99.81 Dependence on supplemental oxygen; Z99.2 Dependence on renal dialysis
CPT/HCPCS: 10078; 10081; 32100